=== PATIENT | male | born 1950 | race Caucasian/White ===

== ENCOUNTER 2019-01-19 14:45 | Day surgery (SDC) | payer MEDICARE, OTHER ==
[2019-01-19] VITALS (9 sets, daily range): BP systolic 126–182; BP diastolic 62–87; PULSE 50–73; TEMP 98.1
[~2019-01-19] VITALS: Ht 175.3 cm; Wt 68.8 kg
[2019-01-19] MEDS ORDERED: PRAVACHOL 20MG20 MG PO (15:12)
[2019-01-19] MEDS ORDERED: PROSCAR 5MG5 MG PO (15:12)
--- NOTE | 2019-01-20 03:28 | NUR ---
Report received from Edna in PACU. Patient to the unit, ambulatory. BP: 182/75. Notified physician and order received for 10mg Hydralazine IV and 20mg Lasix IV now and if hydralazine was ineffective to call anesthesia. BP decreased to normal limits. Patient's pain noted to be 4/10. One Percocet given and not effective. Patient then rated pain 7/10. 2nd Percocet given. Noted to not be effective. Patient was having a hard time urinating. 280 total out. Layla notified and Tordal 60mg IM now and pyridium 100mg q8hr PRN. Also ordered Tordal 30mg IM q8hr PRN after first dose. 60mg Tordal and pyridium given. Patient stated a little bit of relief. Bladder scan showed 700ml of urine in bladder. Order received to straight cath with uroject and to keep patient overnight. Straight cath completed and patient tolerated this okay, but did have a lot of pain and some resistance was noted during cath. 900ml emptied from bladder at 2330 from cath. Patient stated his pain was completely gone. Patient has not voided since cath, and has been sleeping. at bedside.
[2019-01-20 04:33] VITALS: BP 126/58; PULSE 58; TEMP 97.8
--- NOTE | 2019-01-20 06:36 | NUR ---
Patient noted to have 280ml in bladder after bladder scan. Patient states he feels the urge to urinate, but can't at this time. Patient and walking the halls currently.
[2019-01-20 08:00] VITALS: BP 145/59; PULSE 51; TEMP 97.5
--- NOTE | 2019-01-20 11:00 | NUR ---
Dr Loyola has been in talking with patient about discharging and plan for possible foreman catheter placement. He wanted to give a dose of flomax now and or a 30 day script of flomax 0.4mg daily called into patients pharmacy. That has been completed. Discussed with patient the plan for attempting to void after flomax and placing a catheter. Discussed that he has not voided now for 12 hours and the longer we wait that could cause more problems. Patient verbalized understanding. No other changes at this time. Call light within reach.
--- NOTE | 2019-01-20 11:11 | NUR ---
Visited and prayed with patient. I believe he has been released.
--- NOTE | 2019-01-20 12:29 | NUR ---
Plan is to return home with Maliha . Patient reports that he is wanting to stay in the hospital and deal with the cath placement. Patient reports that he uses [facility] in [place] for RX and his PCP is Dr. De La Garza. Patient reports that he has an upcoming annual on Tuesday. Patient indicated that there are no other concerns at this time and will transport home. Will continue to follow if needs arise.
[2019-01-20 12:30] VITALS: BP 147/53; PULSE 71; TEMP 97.4
--- NOTE | 2019-01-20 13:00 | NUR ---
Attempted to place foreman catheter. Was not able to get catheter trough the prostate. Patient had blood returned when attempted to place foreman, in the catheter and around. Notified Dr Loyola and a dose of ativan was ordered and lidocain jelly uroject. Explained the plan to the patient to give the ativan and hope it will help with relaxing the prostate and allow they catheter through. Patient verbalized understanding. No other changes at this time. Call light within reach.
[2019-01-20 17:20] VITALS: BP 151/68; PULSE 64; TEMP 98.3
--- NOTE | 2019-01-20 18:30 | NUR ---
Foreman catheter placed at 1600. Patient was voiding more and was attempting to empty bladder without catheter being placed. Bladder scanned patient and it showed greater than 999ml. Explained this to patient. He finally agreed to lay down long enough to try the catheter placement. 18fr coude tip catheter placed. Dark brown/orange tinted urine returned. No clots noted. Patient is staying one more night. Explained that even though he is staying he will discharge with foreman catheter in place. Patient verbalized understanding. No other changes a this time. Call light within reach.
[2019-01-20 19:44] VITALS: BP 158/67; PULSE 69; TEMP 98.6
--- NOTE | 2019-01-20 20:30 | NUR ---
Pt. sitting up in bed at this time. Pt. is A&OX3, assessment complete. INT to rt. hand patent. Pt. denies pain or other needs, call light within reach.
[2019-01-21] VITALS: BP 138/69; PULSE 60; TEMP 98.1
[2019-01-21 05:51] VITALS: BP 136/72; PULSE 64; TEMP 98.1
[2019-01-21 08:39] VITALS: BP 151/74; PULSE 86; TEMP 97.9
--- NOTE | 2019-01-21 10:00 | NUR ---
Patient has been walking in the hallways independently. Denies pain and nausea. 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 Reminded patient to drink fluids. Patient had several questions about the discharge plan, answered the ones I could. He also stated he would like to speak with the doctor before discharging. No other changes at this time. Call light within reach.
[2019-01-21 11:09] VITALS: BP 144/72; PULSE 68; TEMP 98.3
--- NOTE | 2019-01-21 15:30 | NUR ---
Patient is discharging home. Discharge instructions discussed with patient, his and his daughter. Explained how to discontinue the foreman catheter. Explained hwo to use th leg bag and how to empty both the leg bag and large foreman bag. Patient and verbalized understanding. Patients daughter is a nurse and stated she will help as needed once he is home. Copies of discharge isntructions given to patient. All belongings packed up and sent home with patient. Patient walked out with Blanche MERCHANT.
== END 2019-01-21 15:30 | disposition home or self-care (01) ==
LOC: SDCO 14:45 → SURG 20:10 → SDCO 20:30
DX: N13.2 Hydronephrosis with renal and ureteral calculous obstruction (principal); Z79.899 Other long term (current) drug therapy; R35.0 Frequency of micturition; R35.1 Nocturia; N41.1 Chronic prostatitis; I10 Essential (primary) hypertension; Z98.52 Vasectomy status; Z79.82 Long term (current) use of aspirin; Z82.49 Family history of ischemic heart disease and other diseases of the circulatory system
CPT/HCPCS: OP; A4314; C1894; J0360; J0690; J1885; J1940; J2405; J2704; J3010; J7120; Q9967